=== PATIENT | female | born 1995 | race American Indian/Alaskan Native ===

== ENCOUNTER 2020-06-21 09:39 | Emergency (ER) | payer OTHER ==
[2020-06-21] MEDS ORDERED: TETRACAINE 0.5% OPHTH SOLN 4ML OU ONE (11:34)
[2020-06-21] MEDS ORDERED: TETRACAINE 0.5% OPHTH SOLN 4ML ONE (14:16)
[2020-06-21] MEDS ORDERED: FLUORESCEIN 1 MG STRIP OP ONE ×2 (14:16→14:53)
--- NOTE | 2020-06-21 15:20 | Emergency Department Report ---
ED Eye Problem HPI - General Chief complaint: Eye Problems Stated complaint: RT EYE INJURY/POSS INFECTION Time Seen by Provider: 06/21/20 11:31 Source: patient Mode of arrival: Ambulatory Limitations: No Limitations - History of Present Illness Initial comments: 24-year-old -[place] female patient without significant past medical history presents with complaints of right eye painx 3 days. Patient states on Saturday, her son poked her eyeball with his finger. She complains of a foreign body sensation feeling, pain, and sensitivity to light. Patient states she is taken ibuprofen 800 and is not helping with the pain. She rates her current pain as a 6/10 in severity and states today she woke up with mild pus in her eye. She denies any decrease in her vision, headache, numbness/tingling/weakness. - Related Data Previous Rx's Medication Instructions Recorded Last Taken Type Acetaminophen/Codeine [Tylenol 1 tab PO Q6H PRN #8 tab 06/21/20 Unknown Rx /Codeine # 3 tab] Polymyxin B Sulf/Trimethoprim 1 drop OP Q3H 7 Days #1 bottle 06/21/20 Unknown Rx [Polytrim Eye Drops 20269nvcup/0.1%] Allergies Allergy/AdvReac Type Severity Reaction Status Date / Time No Known Allergies Allergy Verified 06/21/20 10:09 ED Review of Systems ROS: Stated complaint: RT EYE INJURY/POSS INFECTION Other details as noted in HPI Constitutional: denies: chills, fever Eyes: eye pain, eye discharge. denies: vision change Skin: denies: rash, lesions Neurological: denies: headache, numbness, paresthesias ED Past Medical Hx - Social History Smoking Status: Never Smoker Substance Use Type: Alcohol - Medications Home Medications: Home Medications Medication Instructions Recorded Confirmed Last Taken Type Acetaminophen/Codeine [Tylenol 1 tab PO Q6H PRN #8 tab 06/21/20 Unknown Rx /Codeine # 3 tab] Polymyxin B Sulf/Trimethoprim 1 drop OP Q3H 7 Days #1 bottle 06/21/20 Unknown Rx [Polytrim Eye Drops 98045ocetf/0.1%] ED Physical Exam - General Limitations: No Limitations General appearance: alert, in no apparent distress - Head Head exam: Present: atraumatic, normocephalic - Eye Eye exam: Present: conjunctival injection (Right; Quick lamp used to evaluate for a corneal abrasion; tiny corneal abrasion noted overlying the pupil at approximately 6 o'clock. No foreign bodies noted in eye when eyelid everted). Absent: scleral icterus ED Medical Decision Making - Medical Decision Making Small corneal abrasion noted on fluorescein staining and Quick lamp examination. No foreign bodies noted with eyelid eversion. Patient denies contact use. Prescription for Polytrim and Tylenol 3 given. Patient to continue ibuprofen as needed for pain. Discussed possible drowsiness with pain medication and to avoid drinking, driving, and operation of heavy machinery use with use of pain medication. Patient to follow-up with her primary care provider as needed. Her vitals are normal, she is well-appearing, and stable for discharge home. Strict return precautions were discussed in great detail with patient who verbalized understanding. Critical care attestation.: If time is entered above; I have spent that time in minutes in the direct care of this critically ill patient, excluding procedure time. ED Disposition Clinical Impression: Corneal abrasion, right Qualifiers: Encounter type: initial encounter Qualified Code(s): S05.01XA - Injury of conjunctiva and corneal abrasion without foreign body, right eye, initial encounter Disposition: DC-01 TO HOME OR SELFCARE Is pt being admited?: No Condition: Stable Instructions: Corneal Abrasion (ED) Prescriptions: Polymyxin B Sulf/Trimethoprim [Polytrim Eye Drops 26440ukgor/0.1%] 1 drop OP Q3H 7 Days #1 bottle Acetaminophen/Codeine [Tylenol /Codeine # 3 tab] 1 tab PO Q6H PRN #8 tab PRN Reason: Pain , Severe (7-10) Referrals: PRIMARY CARE,MD [Primary Care Provider] - 3-5 Days
== END 2020-06-21 15:43 | disposition home or self-care (01) ==
LOC: ED 09:39
DX: S05.01XA Injury of conjunctiva and corneal abrasion without foreign body, right eye, initial encounter (principal); X58.XXXA Exposure to other specified factors, initial encounter; Y93.89 Activity, other specified; Y92.89 Other specified places as the place of occurrence of the external cause; Y99.8 Other external cause status
CPT/HCPCS: 99282